=== PATIENT | female | born 1995 ===

== ENCOUNTER 2024-05-27 17:40 | Emergency (ER) | payer SELFPAY ==
[2024-05-27 17:45] VITALS: PULSE 82; RESP 16; TEMP 36.6; O2SAT 100
--- NOTE | 2024-05-27 18:37 | PC.NURSE ---
ERP went into room to assess pt and she was not in the room. EMS reports they her walk out of EMS doors when they walked into ED. PD called by ED charge because pt left with SLN inserted.
--- NOTE | 2024-05-27 18:38 | PC.NURSE ---
ON 05/27/24 AT 1838 [facility] [address] CALLED BY THIS ED CHARGE NURSE AT [phone]. GAVE ADDRESS WE HAD ON FILE FROM [facility] / [facility]. REQUESTED [employer] TO DO A WELFARE CHECK ON THIS PT AND MAKE SURE HER IV WAS REMOVED. THE OFFICER ON THE PHONE SAID SHE WOULD GET SOMEONE OUT TO THE ADDRESS TO CHECK.
--- NOTE | 2024-05-27 21:50 | PC.NURSE ---
ON 05/28/2023 AT 2020 DISPATCHER LEAH Lilly CALLED THIS SHEAR HELPER AND SAID THAT SHE SENT OFFICERS TO THE REPORTED ADDRESS. THE OFFICERS REPORTED TO HER THAT THIS IS HER GRANDMOTHERS ADDRESS THAT SHE USES. FAMILY TOLD POLICE THAT THIS PT ROAMS AROUND AND COMES AND GOES SHE PLEASES, AND THEY DO NOT KNOW WHERE SHE IS CURRENTLY.
== END 2024-05-27 23:17 | disposition left against medical advice (07) ==
LOC: ANHED 21:56
DX: G40.909 Epilepsy, unspecified, not intractable, without status epilepticus (principal)
CPT/HCPCS: 99199